=== PATIENT | male | born 1990 | race Caucasian/White ===

== ENCOUNTER 2024-04-29 01:20 | Emergency (ER) | payer SELFPAY ==
[~2024-04-29] VITALS: Ht 182.9 cm; Wt 109.0 kg
[2024-04-29 01:47] VITALS: TEMP 98.5; O2SAT 100
[2024-04-29] MEDS: KETOROLAC 30MG/ML VIAL IV STA (01:48)
[2024-04-29] MEDS ORDERED: ONDA4TAB50 MT (03:41)
[2024-04-29] MEDS ORDERED: TAMS-11 MT (03:41)
[2024-04-29] MEDS ORDERED: HYDR-4001 MT (03:41)
[2024-04-29 03:50] VITALS: BP 127/78; PULSE 82; RESP 18
[2024-04-29] MEDS: ONDANSETRON HCL 4MG/2ML INJ IV NR (03:50)
[2024-04-29] MEDS: TAMSULOSIN HCL 0.4MG SR CAPSULE PO ONE (03:50)
[2024-04-29] MEDS: KETOROLAC 30MG/ML VIAL IV NR (03:50)
[2024-04-29] MEDS: ONDANSETRON HCL 4MG/2ML INJ IV STA (03:51)
[2024-04-29] MEDS: SODIUM CHLORIDE 0.9% 500 ML IV ONE (03:51)
[2024-04-29 04:09] LABS: HEMATOCRIT. 44.3 % (42.0-52.0); HEMOGLOBIN. 14.9 g/dL (14.0-18.0); MEAN CORPUSCULAR HEMOGLOBIN 32.4 pg (28.0-32.0); MEAN CORPUSCULAR HGB CONC 33.7 g/dL (31.0-37.0); MEAN CORPUSCULAR VOLUME 96.3 fL (80.0-94.0); MEAN PLATELET VOLUME 8.9 fl (7.4-10.4); PLATELET 286 x1000/uL (130-400); RED CELL DISTRIBUTION WIDTH 13.3 % (11.6-14.6)
[2024-04-29 04:12] LABS: DIFFERENTIAL COMMENT 1
[2024-04-29 04:14] LABS: CLARITY URINE CLEAR (CLEAR); COLOR URINE YELLOW (YELLOW); GLUCOSE URINE NEGATIVE (NEGATIVE); KETONES URINE NEGATIVE (NEGATIVE); LEUKOCYTE ESTERASE URINE NEGATIVE (NEGATIVE); NITRITE URINE NEGATIVE (NEGATIVE); OCCULT BLOOD URINE 3+ (NEGATIVE); PROTEIN URINE 1+ (NEGATIVE)
[2024-04-29 04:25] LABS: CHLORIDE 106 mEq/L (98-107); POTASSIUM 4.1 mEq/L (3.5-5.1); SODIUM 141 mEq/L (136-145)
[2024-04-29 04:26] LABS: CARBON DIOXIDE 25 mEq/L (21-32)
[2024-04-29 04:27] LABS: CALCIUM 9.7 mg/dL (8.7-10.4)
[2024-04-29] MEDS ORDERED: SULF1TAB48 MT (04:28)
[2024-04-29 04:31] LABS: CREATININE 1.1 mg/dL (0.6-1.3); GLUCOSE 125 mg/dL (70-105); UREA NITROGEN BLOOD 11 mg/dL (9-23)
[2024-04-29 04:33] LABS: ALANINE AMINOTRANSFERASE 21 IU/L (10-49); ALBUMIN 4.9 g/dL (3.2-4.8); ASPARTATE AMINOTRANSFERASE 19 IU/L (<34)
[2024-04-29 04:34] LABS: BILIRUBIN TOTAL 0.6 mg/dL (0.1-1.0); PROTEIN TOTAL 7.4 g/dL (6.0-8.3)
[2024-04-29 04:44] LABS: SQUAMOUS EPITHELIAL CELL URINE FEW /lpf (RARE/1+)
[2024-04-29 04:45] LABS: BACTERIA URINE NONE SEEN; RBC URINE 25-50 /hpf (0-2); WBC URINE 0-2 /hpf (0-2)
[2024-04-29 05:16] LABS: PLATELET ESTIMATE NORMAL
== END 2024-04-29 06:24 | disposition home or self-care (01) ==
LOC: ER 01:48
DX: N20.1 Calculus of ureter (principal); Z87.442 Personal history of urinary calculi
CPT/HCPCS: 99285; 74176; 96374; 96375; 80053; 81003; 85025; 36415; J1885; J2405; J7030